=== PATIENT | female | born 1980 | race Caucasian/White ===

== ENCOUNTER 2024-02-03 12:43 | Outpatient (CLI) | payer BC ==
[2024-02-03 14:38] LABS: BASOPHILS # (AUTO) 0.1 X10'3 (0-0.2); BASOPHILS % (AUTO) 1.2 % (0-1); EOSINOPHILS # (AUTO) 0.2 X10'3 (0-0.9); EOSINOPHILS % (AUTO) 2.6 % (0-6); HEMATOCRIT 39.5 % (35.0-45.0); HEMOGLOBIN 13.3 g/dl (12.0-16.0); LYMPHOCYTES # (AUTO) 2.6 X10'3 (1.1-4.8); LYMPHOCYTES % (AUTO) 42.5 % (21-51); MEAN CORPUSCULAR HEMOGLOBIN 31.3 PG (27.0-31.0); MEAN CORPUSCULAR HGB CONC 33.7 g/dL (33.0-36.5); MEAN CORPUSCULAR VOLUME 92.9 FL (78-98); MONOCYTES # (AUTO) 0.5 X10'3 (0-0.9); MONOCYTES % (AUTO) 8.3 % (2-12); NEUTROPHILS # (AUTO) 2.8 X10'3 (1.8-7.7); NEUTROPHILS % (AUTO) 45.4 % (42-75); PLATELET COUNT 164 X10'3 (140-440); RED BLOOD COUNT 4.25 X10'6 (4.20-5.60); RED CELL DISTRIBUTION WIDTH 12.4 % (11.5-14.5); WHITE BLOOD COUNT 6.1 X10'3 (4.5-11.0)
[2024-02-03 14:49] LABS: ANION GAP 8 (8-16); BLOOD UREA NITROGEN 16 MG/DL (7-18); CALCIUM 8.6 MG/DL (8.5-10.1); CHLORIDE 107 MMOL/L (99-107); CREATININE 0.94 MG/DL (0.40-0.90); GLUCOSE 94 MG/DL (70-104); POTASSIUM 3.6 MMOL/L (3.5-5.1); SODIUM 142 MMOL/L (135-145); TOTAL CARBON DIOXIDE 26.9 MMOL/L (24-32); eGFR 64 ML/MIN
[2024-02-03 15:02] LABS: % IRON SATURATION 29 % (11-46); IRON 80 UG/DL (49-151); TOTAL IRON BINDING CAPACITY 279 UG/DL (259-388)
[2024-02-03 15:36] LABS: ALANINE AMINOTRANSFERASE 40 U/L (12-78); ALBUMIN/GLOBULIN RATIO 1.2 (1.1-1.5); ALKALINE PHOSPHATASE 55 IU/L (46-116); ASPARTATE AMINO TRANSFERASE 27 U/L (10-37); BILIRUBIN,TOTAL 0.4 MG/DL (0.1-1.0); CHOL/HDL RATIO 2.5 (0.00-4.99); CHOLESTEROL 156 MG/DL (0-200); FERRITIN 219 NG/ML (8-252); FREE T4 (FREE THYROXINE) 0.82 NG/DL (0.73-1.40); HDL CHOLESTEROL 63 MG/DL (35-60); LDL CHOLESTEROL 83 MG/DL (50-100); THYROID STIMULATING HORMONE 1.83 ulU/ml (0.34-4.50); TOTAL PROTEIN 7.4 G/DL (6.4-8.2); TRIGLYCERIDES 43 MG/DL (20-135)
== END 2024-02-03 23:59 | disposition home or self-care (01) ==
LOC: RAD 12:43
PROVIDERS: ATTEND Internal Medicine Cardiovascular Disease
DX: F32.9 Major depressive disorder, single episode, unspecified (principal); R74.8 Abnormal levels of other serum enzymes; Z79.52 Long term (current) use of systemic steroids
CPT/HCPCS: 36415; 80053; 80061; 82306; 82728; 83540; 83550; 84439; 84443; 85025

== ENCOUNTER 2024-04-08 04:58 | Emergency (ER) | payer BC ==
[~2024-04-08] VITALS: Ht 175.3 cm; Wt 73.7 kg
[2024-04-08 05:23] LABS: BILIRUBIN,URINE NEGATIVE (Neg); CLARITY,URINE SLIGHTLY CLOUDY (Clear); COLOR,URINE YELLOW (Yellow); GLUCOSE, URINE NEGATIVE (Neg); KETONES,URINE NEGATIVE (Neg); LEUKOCYTE ESTERASE ,URINE LARGE (Neg); NITRITES, URINE NEGATIVE (Neg); OCCULT BLOOD,URINE LARGE (Neg); PH,URINE 6.5 (4.8-8.0); PROTEIN,URINE NEGATIVE (Neg); UROBILINOGEN,URINE 0.2 E.U/dL (0.2-1.0)
[2024-04-08 05:25] LABS: UA COLLECTION TYPE URINAL
[2024-04-08 05:28] LABS: BACTERIA,URINE 3+ /HPF (Neg); RBC,URINE 20-50 /HPF (0-2); SQUAMOUS EPITHELIAL CELL,UR MANY /LPF (FEW); WBC,URINE TNTC /HPF (0-4)
[2024-04-08] MEDS ORDERED: CEPH-585 PO (05:34)
[2024-04-08] MEDS: cephalexin 250mg capsule PO ONE (05:45)
[2024-04-08] MEDS: phenazopyridine 100mg tablet PO ONE (05:45)
[2024-04-08 05:53] VITALS: BP 108/70; PULSE 86; RESP 18; TEMP 99.3; O2SAT 99
== END 2024-04-08 05:58 | disposition home or self-care (01) ==
LOC: ER 04:59
DX: N39.0 Urinary tract infection, site not specified (principal)
CPT/HCPCS: 81001; 99283

== ENCOUNTER 2024-11-19 11:52 | Outpatient (CLI) | payer BC ==
[2024-11-20 09:32] LABS: MEAN PLATELET VOLUME 10.7 FL (7.4-10.4); RED CELL DISTRIBUTION WIDTH 12.7 % (11.5-14.5)
[2024-11-20 09:54] LABS: CREATININE 1.05 MG/DL (0.40-0.90); PRO BRAIN NATRIURETIC PEPTIDE 56 PG/ML (0-125); TOTAL CARBON DIOXIDE 28.1 MMOL/L (24-32); eGFR 56 ML/MIN
[2024-11-21 11:11] LABS: ESTRADIOL 21.8 pg/mL (.); FSH, SERUM 1.9 mIU/mL (.); LUTEINIZING HORMONE 1.0 mIU/mL (.); TESTOSTERONE, SERUM 11 ng/dL (4-50)
[2024-11-25 09:19] LABS: TESTOSTERONE, FREE, DIRECT 0.9 pg/mL (0.0-4.2)
== END 2024-11-19 23:59 | disposition home or self-care (01) ==
LOC: RAD 11:52
PROVIDERS: ATTEND Internal Medicine Cardiovascular Disease
DX: F32.A Depression, unspecified (principal); Z79.52 Long term (current) use of systemic steroids
CPT/HCPCS: 36415; 80053; 82670; 83001; 83002; 83880; 84270; 84402; 84403; 84439; 84443; 85025